=== PATIENT | female | born 1965 | race Caucasian/White ===

== ENCOUNTER → 2017-08-16 | Outpatient (CLI) | payer SELFPAY | END | disposition home or self-care (01) | LOC: ECHO 10:59 | DX: I25.2 Old myocardial infarction (principal) | CPT/HCPCS: 93306 ==

== ENCOUNTER → 2018-06-27 | Outpatient (CLI) | payer SELFPAY ==
[2017-05-16 15:15] VITALS: BP 119/66
[~2018-06-27] MED LIST: ASPI-612 PO; ATOR20TA58 PO; LOSA-73 PO; LOSA25TA54 PO; METO25TA4 PO; OMEG1CAP6 PO
[2018-06-27 09:24] LABS: CALCIUM 9.1 mg/dL (8.5-10.1); CREATININE 0.8 mg/dL (0.6-1.0); POTASSIUM 4.2 mmol/L (3.5-5.1)
[2018-06-27 09:25] LABS: CHOLESTEROL/HDL RATIO 4.5
== END | disposition home or self-care (01) ==
LOC: LAB 08:46
PROVIDERS: ATTEND Internal Medicine Cardiovascular Disease
DX: I25.10 Atherosclerotic heart disease of native coronary artery without angina pectoris (principal); E78.5 Hyperlipidemia, unspecified
CPT/HCPCS: 36415; 80048; 80061